=== PATIENT | female | born 1945 | race Caucasian/White ===

== ENCOUNTER → 2016-10-13 | Outpatient (CLI) | payer MEDICARE ==
[~2016-10-13] MED LIST: ACETAMINOPHEN PO; ADULT LOW DOSE81 MG PO; ADVAIR 250/5028 PUFF IN; ASPIRIN 81MG TA81 MG PO; ATORVASTATIN CA40 MG PO; CLOPIDOGREL75 M2 PO; DARVOCET-N6 EACH/PAK PO; EC NAPROSYN500 MG PO; K-DUR 2020 MEQ PO; MAXZIDE 50 MG-71 TAB PO; METOPROLOL SUCC50 M2 PO; METOPROLOL SUCC50 M4 PO; NORCO 325 MG-51 TAB PO; PLAVIX 75MG TAB75 MG PO; POTASSIUM CHLO20 ME2 PO; Roxicodone5 MG PO; ZITHROMAX Z PA250 MG PO; ZOFRAN4 MG PO; [UNRECOGNIZED DRUG - OTHER] TD
== END ==
LOC: RT 10:17
DX: C34.90 Malignant neoplasm of unspecified part of unspecified bronchus or lung (principal); I73.9 Peripheral vascular disease, unspecified; J44.9 Chronic obstructive pulmonary disease, unspecified; I77.1 Stricture of artery

== ENCOUNTER 2016-12-12 10:00 | Outpatient (CLI) | payer MEDICARE ==
[~2016-12-12] VITALS: Ht 144.8 cm; Wt 57.6 kg
[2016-12-12] VITALS (8 sets, daily range): BP systolic 102–118; BP diastolic 51–61
== END 2016-12-12 12:50 | disposition home or self-care (01) ==
LOC: COP 10:00
DX: C34.11 Malignant neoplasm of upper lobe, right bronchus or lung (principal)
CPT/HCPCS: J1642; J9181; Q0166

== ENCOUNTER 2017-06-17 12:41 | Outpatient (CLI) | payer MEDICARE ==
[2017-06-17 12:45] LABS: HEMOGLOBIN 14.1 g/dL (12.2-16.2)
[2017-06-17 12:46] LABS: LYMPH # 0.9 K/mm3 (0.7-4.5); LYMPH % 13.1 % (10-50.0)
[2017-06-17 13:00] LABS: BUN 8 mg/dL (7-18)
[2017-06-17 13:01] LABS: GFR (ESTIMATED) 121 ML/MIN (59-)
--- NOTE | 2017-06-18 07:44 | RADIOLOGY REPORT PS360 ---
CT CHEST W/ CONTRAST INDICATION: SMALL CELL LUNG CANCER ORDERING PHYSICIAN: Kory Moore MD PATIENT AGE: 71 years COMPARISON: 04/17/2017, 08/21/2016 TECHNIQUE: Axial images are obtained with 75 mL is Isovue-370 contrast. Sagittal and coronal reformatted images are reviewed as well. FINDINGS: Small pretracheal lymph node once again identified measuring 11 x 8 mm not significant changed. There are coronary artery calcifications. Normal heart size. No obvious pericardial effusion. Right upper lobe nodule slightly smaller measuring 14 x 9 mm previously 16 x 11 mm. Cavitating lesions once again noted in the right upper lobe laterally at 13 x 8 mm and within the superior segment of the right lower lobe 17 x 14 mm. These cavitating nodules are slightly larger. A new solid-appearing oval nodule present in the right lower lobe anteriorly at 8 x 6 mm suspicious for metastatic focus. There are centrilobular emphysematous changes. No effusions or infiltrates. Upper abdominal images are unremarkable. No evidence of aortic aneurysm. No acute bony anomalies. Left subclavian central catheter is present with the tip in the region superior vena cava. There are to Amita changes of the thoracic spine. No destructive process apparent. IMPRESSION: 1. There has been a mixed response. The original nodule within the right upper lobe is very slightly smaller. 2. The cavitating lesions in the right upper lobe and right lower lobe are slightly larger suspicious for cavitating metastasis. There is also a new 7 mm nodule in the right lower lobe anteriorly suspicious for new metastatic focus..
[2017-06-22] MEDS ORDERED: MICRO-K 10 MEQ10 MEQ PO (12:07)
== END 2017-06-17 13:35 | disposition home or self-care (01) ==
LOC: ONCOL 12:41 → RAD 13:00 → ONCOL 13:00
PROVIDERS: Internal Medicine
DX: C34.91 Malignant neoplasm of unspecified part of right bronchus or lung (principal); Z79.899 Other long term (current) drug therapy
CPT/HCPCS: J1642; Q9967

== ENCOUNTER 2017-07-17 09:25 | Outpatient (CLI) | payer MEDICARE ==
[~2017-07-17 09:25] MED LIST changes: +MICRO-K 10 MEQ10 MEQ PO
[2017-07-17 09:30] VITALS: BP 112/63
== END 2017-07-17 09:50 | disposition home or self-care (01) ==
LOC: COP 09:25
DX: C34.11 Malignant neoplasm of upper lobe, right bronchus or lung (principal); Z45.2 Encounter for adjustment and management of vascular access device
CPT/HCPCS: J1642

== ENCOUNTER 2017-08-17 09:43 | Outpatient (CLI) | payer MEDICARE | END 2017-08-17 09:45 | disposition home or self-care (01) | LOC: COP 09:43 | DX: C34.11 Malignant neoplasm of upper lobe, right bronchus or lung (principal); Z45.2 Encounter for adjustment and management of vascular access device | CPT/HCPCS: J1642 ==